=== PATIENT | female | born 1985 | race Caucasian/White ===

== ENCOUNTER 2017-07-26 15:59 | Emergency (ER) | payer OTHER ==
[~2017-07-26] VITALS: Ht 165.1 cm; Wt 94.8 kg
[~2017-07-26 15:59] MED LIST: BENADRYL25 MG PO; INTESTINEX680 MG PO
[2017-07-26] MEDS ORDERED: PROZAC10 MG (16:19)
== END 2017-07-26 20:11 | disposition home or self-care (01) ==
LOC: ER 15:59
DX: L03.211 Cellulitis of face (principal)

== ENCOUNTER 2018-04-22 17:37 | Emergency (ER) | payer OTHER ==
[~2018-04-22] VITALS: Ht 167.6 cm; Wt 90.7 kg
[~2018-04-22 17:37] MED LIST changes: +PROZAC10 MG
== END 2018-04-22 22:50 | disposition home or self-care (01) ==
LOC: ER 17:37
DX: J06.9 Acute upper respiratory infection, unspecified (principal); J11.1 Influenza due to unidentified influenza virus with other respiratory manifestations

== ENCOUNTER 2018-11-04 17:39 | Emergency (ER) | payer OTHER ==
[~2018-11-04] VITALS: Ht 167.6 cm; Wt 93.0 kg
[2018-11-04] MEDS ORDERED: BACTRIM DS TAB1 EACH PO (19:36)
== END 2018-11-04 19:46 | disposition home or self-care (01) ==
LOC: ER 17:39
DX: N39.0 Urinary tract infection, site not specified (principal)